=== PATIENT | male | born 1955 | race Caucasian/White ===

== ENCOUNTER 2017-12-03 07:51 | Day surgery (SDC) | payer OTHER ==
--- NOTE | 2017-12-03 09:11 | CP.SDSHP ---
Same Day Surgery H & P - History Proposed Procedure: colonoscopy - Previous Medical/Surgical History Cardiac: Hypertension, Arrhythmia Pulmonary: Asthma Neuro: Other Comments: gout Previous Surgical History: rt shoulder sx - Allergies Allergies: Allergies No Known Allergies Allergy (Verified 02/15/15 09:13) - Physical Exam Vital Signs: Vital Signs 12/03/17 08:34 Temperature 97.8 F Pulse Rate 51 L Respiratory 19 Rate Blood Pressure 113/78 O2 Sat by Pulse 98 Oximetry - Date & Time Date: 12/03/17 Time: 09:11 Short Stay Discharge - Short Stay Discharge Admitting Diagnosis/Reason for Visit: FAMILY HISTORY OF MALIGNANT NEOPLASM OF DIGESTIVE Disposition: HOME/ ROUTINE
[2017-12-03] MEDS ORDERED: Propofol 10 mg/ml Inj (20 ML) ONE (10:18)
[2017-12-03] MEDS: Lactated Ringer's 1,000 ML IV ONE ×2 (10:25→10:42)
[2017-12-03] MEDS ORDERED: Lactated Ringer's 1,000 ML IV ONE (10:25)
[2017-12-03 10:31] VITALS: BMI 30.9
[2017-12-03] MEDS ORDERED: Lactated Ringer's 500 ML IV SCH (10:45)
[2017-12-03 11:03] VITALS: TEMP 97.1
[2017-12-03 11:48] VITALS: BP 101/60; PULSE 52; RESP 14; O2SAT 99
== END 2017-12-03 12:00 | disposition home or self-care (01) ==
LOC: C.ENDO 07:51
PROVIDERS: ATTEND Colon & Rectal Surgery
DX: Z12.11 Encounter for screening for malignant neoplasm of colon (principal); Z80.0 Family history of malignant neoplasm of digestive organs; K57.90 Diverticulosis of intestine, part unspecified, without perforation or abscess without bleeding; K64.8 Other hemorrhoids
CPT/HCPCS: 45378; J2704; J7120